=== PATIENT | male | born 1995 | race Caucasian/White ===

== ENCOUNTER 2018-05-24 23:53 | Emergency (ER) | payer BC ==
[~2018-05-24] VITALS: Ht 188 cm; Wt 104.3 kg
[~2018-05-24 23:53] MED LIST: CLAR500T2 PO; PRD20T PO
--- OUTSIDE RECORDS SUMMARY | 2018-05-24 23:58 | XMS REPORT | CCD ---
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 Allergies Allergy Code Allergy Type Reaction Status CODEINE SULFATE 92327 Drug allergy Active Procedures Procedure Code Procedure Type Date STREP SCREEN [id number] SNOMED CT 08/30/2015 History of Immunizations Immunization Code Date Tdap 115 03/24/2009 Problems Unknown or Not Available. Results STREP SCREEN - Collect Date/Time: 08/30/2015 12:21 Test Name Code Test Result Test Units Test Ref Range STREP SCREEN 6556-5 NEGATIVE N/A NORMAL: NEGATIVE Active Medications Unknown or Not Available. Medications Administered During Visit Unknown or Not Available. Encounters Encounter Diagnosis Diagnosis Code Start Date Acute upper respiratory infection [id number] 08/30/2015 Social History Smoking Status Code Start Date End Date Never smoker [id number] Patient Decision Aids Unknown or Not Available. Discharge Instructions You were admitted to [facility] on 08/30/2015 with a principal diagnosis of Acute upper respiratory infection . You were discharged from [facility] on 08/30/2015. Should you have any questions prior to discharge, please contact a member of your healthcare team. If you have left the hospital and have any questions, please contact your primary care physician. Chief Complaint and Reason For Visit Chief Complaint Date of Onset SORE THROAT Function Status Unknown or Not Available. Plan of Care Unknown or Not Available. Referral/Transition of Care Unknown or Not Available.
--- OUTSIDE RECORDS SUMMARY | 2018-05-24 23:59 | XMS REPORT | Continuity of Care Document ---
Author Author [facility] Organization [facility] Address Unknown Phone Unavailable Allergies Active Description Code Type Severity Reaction Onset Reported/Identified Relationship to Patient Clinical Status Yes codeine [id number] Drug Allergy Unknown N/A 09/01/2015 Medications There is no data. Problems Date Dx Coded Attending Type Code Diagnosis Diagnosed By 09/01/2015 LUC BARBOSA APRN Ot J40 09/01/2015 LUC BARBOSA APRN Ot R09.81 09/01/2015 LUC BARBOSA APRN Ot R11.10 Procedures There is no data. Results There is no data. Encounters ACCT No. Visit Date/Time Discharge Status Pt. Type Provider Facility Loc./Unit Complaint [id number] 09/01/2015 21:24:00 09/01/2015 21:37:00 DIS Emergency LUC BARBOSA APRN [facility] ER
[2018-05-25] MEDS: RX-CIPROFLOXACIN (CILOXAN) 0.3% OP SOLN 2.5 ML OP STA (01:14)
--- NOTE | 2018-05-25 01:16 | ED EENT ---
History of Present Illness General Chief Complaint: Foreign Body Stated Complaint: MOTH IN R EAR Nursing Triage Note: BUG IN RIGHT EAR Source: patient Exam Limitations: no limitations History of Present Illness Date Seen by Provider: May 25, 2018 Time Seen by Provider: 00:38 Initial Comments Here with report of bug in the right ear. States he was at a local establishment and a month was applied around. He swatted at it and it flew in his right ear. He can hear it buzzing. Denies other concerns. Timing/Duration: abrupt Location: ear (R) Prearrival Treatment: other (tried taking out with his fingers but that did not work.) Associated Symptoms: change in hearing (right ear) Allergies and Home Medications Allergies Coded Allergies: codeine (Verified Allergy, Unknown, 09/01/15) Patient Home Medication List Home Medication List Reviewed: Yes Review of Systems Review of Systems Constitutional: see HPI; No chills, No fever Ears: See HPI, Pain, Bloody Discharge Respiratory: no symptoms reported Cardiovascular: no symptoms reported Past Eeehotu-Ccojwa-Nxjsfr Hx Patient Social History Alcohol Use: Occasionally Uses Alcohol Beverage of Choice: Beer Recreational Drug Use: No Type Used: Smokeless Tobacco 2nd Hand Smoke Exposure: No Recent Foreign Travel: No Contact w/Someone Who Travel: No Recent Infectious Disease Expo: No Recent Hopitalizations: No Immunizations Up To Date Tetanus Booster (TDap): Less than 5yrs PED Vaccines UTD: Yes Seasonal Allergies Seasonal Allergies: No Past Medical History Surgeries: Yes (hernia, wisdom teeth) Adenoidectomy, Tonsillectomy Respiratory: No Cardiac: No Neurological: No Reproductive Disorders: No Sexually Transmitted Disease: No Genitourinary: No Gastrointestinal: No Musculoskeletal: No Endocrine: No HEENT: No Cancer: No Psychosocial: No Integumentary: No Blood Disorders: No Physical Exam Vital Signs Vital Signs - First Documented 05/25/18 00:35 Temp 96.5 Pulse 78 Resp 16 B/P (MAP) 124/78 (93) Pulse Ox 99 O2 Delivery Room Air Height, Weight, BMI Height: 6'2" Weight: 230lbs. oz. 104.010431up; 26.96 BMI Method:Stated General Appearance: WD/WN, no apparent distress Ears: right ear foreign body (bug noted deep in the canal), right ear other ( excoriations around the canal) Cardiovascular: regular rate, rhythm, no murmur Respiratory: lungs clear, normal breath sounds Neurologic/Psychiatric: alert, oriented x 3 Progress/Results/Core Measures Results/Orders My Orders Orders - KHOI WEST MD Rx-Ciprofloxacin Krish Sherman (Rx-Ciloxan (05/25/18 01:09) Vital Signs/I&O 05/25/18 00:35 Temp 96.5 Pulse 78 Resp 16 B/P (MAP) 124/78 (93) Pulse Ox 99 O2 Delivery Room Air Blood Pressure Mean: 93 Progress Progress Note : Progress Note Seen and evaluated. 1 percent lidocaine instilled into the right ear canal. After about 10 minutes, fluid suctioned from ear. Using ear speculum and suction I was able to extract the bug from the ear. Did note soft tissue irritation and small amount of bleeding. This was rinsed from the ear. Ciprofloxacin drops initiated and we will continue that for several days. Discharged home with return precautions. Patient verbalize understanding of instructions and agreement with plan. Departure Impression Primary Impression: Foreign body in right ear, initial encounter Disposition: 01 HOME, SELF-CARE Condition: Improved Departure-Patient Inst. Decision time for Depature: 01:16 Referrals: MANOLO CABRERA MD NO,LOCAL PHYSICIAN (PCP) Primary Care Physician Patient Instructions: Foreign Body in Ear, Child (DC) Add. Discharge Instructions: All discharge instructions reviewed with patient and/or family. Voiced understanding. Use the eardrops given 4 drops to the ear twice daily for the next 5 days. Follow-up with the ear nose and throat surgeon for your Dr. in a few days for recheck and further evaluation. Return for worse pain, swelling, fever, hearing problems or other concerns as needed. KHOI WEST MD May 25, 2018 01:15
[2018-05-25 01:33] VITALS: BP 124/78
== END 2018-05-25 01:34 | disposition home or self-care (01) ==
LOC: EDUNIT# 23:53 → ER 23:54
DX: T16.1XXA Foreign body in right ear, initial encounter (principal); Z88.5 Allergy status to narcotic agent; Z90.89 Acquired absence of other organs
CPT/HCPCS: 99283